=== PATIENT | male | born 1940 | race Caucasian/White ===

== ENCOUNTER → 2016-12-04 | Outpatient (REF) | payer MEDICARE ==
[2016-12-06 14:14] LABS: PSA TOTAL <0.1 ng/mL (0.0-4.0)
== END ==
LOC: M LAB REF 16:39
PROVIDERS: ATTEND Urology
DX: Z85.46 Personal history of malignant neoplasm of prostate (principal)

== ENCOUNTER 2022-11-04 13:25 | Emergency (ER) | payer MEDICARE ==
[~2022-11-04] VITALS: Ht 177.8 cm; Wt 76.9 kg
[2022-11-04] MEDS ORDERED: IRON1TAB2 PO (14:07)
[2022-11-04] MEDS ORDERED: ALLO100T PO (14:07)
[2022-11-04] MEDS ORDERED: POTA1TAB23 PO (14:07)
[2022-11-04] MEDS ORDERED: DULO1CAP6 PO (14:07)
[2022-11-04] MEDS ORDERED: XARE20TA PO (14:07)
[2022-11-04] MEDS ORDERED: OMEP40CA5 PO (14:07)
[2022-11-04] MEDS ORDERED: METO1TAB32 PO (14:07)
[2022-11-04] MEDS ORDERED: IRBE300T7 PO (14:07)
[2022-11-04] MEDS ORDERED: KRIL1CAP15 PO (14:07)
[2022-11-04] MEDS ORDERED: DONE5TAB82 PO (14:07)
[2022-11-04] MEDS ORDERED: D 1010002 PO (14:07)
[2022-11-04] MEDS ORDERED: FURO20TA2 PO (14:07)
[2022-11-04] MEDS ORDERED: FACTOR XA,INACTIVATED-ZHZO 400 MG in APPROPRIATE DILUENT 40 ML IV ONE (14:30)
[2022-11-04] MEDS: hydrALAZINE 20MG/ML 1ML VIAL IV PRN ×2 (14:30→14:49)
[2022-11-04 14:37] LABS: HEMATOCRIT 37.1 % (42.0-52.0); HEMOGLOBIN 12.6 g/dl (13.5-17.5); MEAN CORPUSCULAR HEMOGLOBIN 33.2 pg (27.0-33.0); MEAN CORPUSCULAR VOLUME 97.9 fl (80.0-96.0); PLATELET COUNT, AUTOMATED 320 10^3/uL (150-450); RED BLOOD COUNT 3.79 10^6/uL (4.30-6.10); WHITE BLOOD COUNT 11.3 10^3/uL (4.0-10.0)
[2022-11-04 14:45] LABS: INR 1.29; PROTHROMBIN TIME 16.3 SECONDS (12.5-14.5)
[2022-11-04] MEDS ORDERED: ONDANSETRON 4MG 2ML VIAL IV ONE (14:45)
[2022-11-04 14:52] LABS: BLOOD UREA NITROGEN 14 MG/DL (9-23); CALCIUM LEVEL 9.2 MG/DL (8.3-10.6); CARBON DIOXIDE LEVEL 32 MMOL/L (20-31); CHLORIDE LEVEL 96 MMOL/L (98-107); CREATININE FOR GFR 0.75 MG/DL (0.70-1.30); GLOMERULAR FILTRATION RATE > 60.0 (>35); GLUCOSE, FASTING 111 MG/DL (74-106); POTASSIUM SERUM 3.2 MMOL/L (3.5-5.1); SODIUM LEVEL 138 MMOL/L (136-145)
[2022-11-04] MEDS ORDERED: FACTOR XA,INACTIVATED-ZHZO 480 MG in APPROPRIATE DILUENT 48 ML IV ONE (15:00)
[2022-11-04] MEDS: LABETALOL 100MG/20ML VIAL IV PRN ×4 (15:17→16:20)
[2022-11-04 16:30] VITALS: BP 166/79
[2022-11-04] MEDS ORDERED: LABETALOL HCL 200 MG in NS 160 ML IV SCH ×2 (16:30→16:38)
[2022-11-04 17:00] VITALS: BP 168/80; TEMP 98; O2SAT 98
== END 2022-11-04 17:08 | disposition short-term general hospital (02) ==
LOC: M ED 13:25
DX: S06.6X0A Traumatic subarachnoid hemorrhage without loss of consciousness, initial encounter (principal); S06.360A Traumatic hemorrhage of cerebrum, unspecified, without loss of consciousness, initial encounter; T45.515A Adverse effect of anticoagulants, initial encounter; W19.XXXA Unspecified fall, initial encounter; Y92.89 Other specified places as the place of occurrence of the external cause; I10 Essential (primary) hypertension; Z79.01 Long term (current) use of anticoagulants; Z79.899 Other long term (current) drug therapy
CPT/HCPCS: 70450; 72125; 80048; 85027; 85610; 85730; 86850; 86900; 86901; 93041; 94760; 96365; 96366; 96375; 96376; 99285; J0360; J1920; J2405; J7169

== ENCOUNTER 2022-11-23 10:07 | Emergency (ER) | payer MEDICARE ==
[~2022-11-23] VITALS: Ht 177.8 cm; Wt 80.0 kg
[~2022-11-23 10:07] MED LIST: ALLO100T PO; D 1010002 PO; DONE5TAB82 PO; DULO1CAP6 PO; FURO20TA2 PO; IRBE300T7 PO; IRON1TAB2 PO; KRIL1CAP15 PO; METO1TAB32 PO; OMEP40CA5 PO; POTA1TAB23 PO; XARE20TA PO
[2022-11-23 10:46] LABS: APPEARANCE, URINE CLEAR (CLEAR); BACTERIA, URINE AUTO NEGATIVE (NEGATIVE); BILIRUBIN, URINE AUTO NEGATIVE (NEGATIVE); BLOOD, URINE BLOOD NEGATIVE (NEGATIVE); COLOR, URINE STRAW (YELLOW); GLUCOSE, URINE (UA) AUTO NEGATIVE (NEGATIVE); KETONE, URINE AUTO NEGATIVE (NEGATIVE); LEUKOCYTE ESTERASE, URINE AUTO NEGATIVE (NEGATIVE); NITRITE, URINE AUTO NEGATIVE (NEGATIVE); PROTEIN, URINE AUTO NEGATIVE (NEGATIVE); RBC, URINE AUTO 0 /HPF (0-3); SPECIFIC GRAVITY URINE AUTO 1.005 (1.002-1.035); SQUAMOUS EPITHELIAL CELL UR AU 0 /HPF (0-6); UROBILINOGEN, URINE AUTO 0.2 mg/dL (0.0-2.0); WBC, URINE AUTO 0 /HPF (0-3)
[2022-11-23] MEDS ORDERED: LIDOCAINE 5% (LIDODERM) PATCH TD ONE (12:10)
[2022-11-23] MEDS ORDERED: MENT118S2 TP (13:08)
[2022-11-23] MEDS ORDERED: IRBE300T7 PO (13:08)
[2022-11-23] MEDS ORDERED: ASPE4PAD TOP (13:08)
[2022-11-23 13:19] VITALS: BP 155/83; TEMP 96.7; O2SAT 98
== END 2022-11-23 13:24 | disposition home or self-care (01) ==
LOC: M ED 10:07
DX: M54.50 Low back pain, unspecified (principal); M85.88 Other specified disorders of bone density and structure, other site; M51.44 Schmorl's nodes, thoracic region; M51.84 Other intervertebral disc disorders, thoracic region; I70.0 Atherosclerosis of aorta; I77.810 Thoracic aortic ectasia; I48.91 Unspecified atrial fibrillation; Z86.73 Personal history of transient ischemic attack (TIA), and cerebral infarction without residual deficits; Z87.820 Personal history of traumatic brain injury; Z87.442 Personal history of urinary calculi; Z79.899 Other long term (current) drug therapy